=== PATIENT | male | born 1965 | race Caucasian/White ===

== ENCOUNTER 2017-01-16 08:12 | Day surgery (SDC) | payer BC ==
[2017-01-16] MEDS ORDERED: PROPOFOL 500 MG/50 ML EMU IV ONE (08:28)
[2017-01-16] MEDS ORDERED: FENTANYL 100MCG/2ML SOL ONE (09:11)
[2017-01-16 10:19] VITALS: BP 116/73; PULSE 52; RESP 18; TEMP 97.4; O2SAT 97
== END 2017-01-16 10:35 | disposition home or self-care (01) ==
LOC: SURG 08:12
PROVIDERS: ATTEND Surgery
DX: Z12.11 Encounter for screening for malignant neoplasm of colon (principal); K63.5 Polyp of colon; D12.5 Benign neoplasm of sigmoid colon; D12.8 Benign neoplasm of rectum
CPT/HCPCS: 45385; 99001; J2704 ×2; J3010 ×2